=== PATIENT | female | born 1995 | race Caucasian/White ===

== ENCOUNTER → 2016-08-06 | Outpatient (REF) | payer SELFPAY | LOC: M LAB REF 09:35 | PROVIDERS: ATTEND Physician Assistant | DX: R20.9 Unspecified disturbances of skin sensation (principal) ==

== ENCOUNTER 2017-12-22 09:46 | Emergency (ER) | payer OTHER, SELFPAY | END 2017-12-22 10:27 | disposition home or self-care (01) | LOC: M ED 09:46 | DX: S51.802A Unspecified open wound of left forearm, initial encounter (principal); S50.812A Abrasion of left forearm, initial encounter; W50.4XXA Accidental scratch by another person, initial encounter; Y92.198 Other place in other specified residential institution as the place of occurrence of the external cause; Z88.0 Allergy status to penicillin | CPT/HCPCS: 99282 ==

== ENCOUNTER 2018-12-09 19:08 | Emergency (ER) | payer MEDICAID, OTHER, SELFPAY ==
[~2018-12-09] VITALS: Ht 170.2 cm; Wt 94.8 kg
[~2018-12-09 19:08] MED LIST: KEFL500C17 PO
[2018-12-09 20:17] LABS: HEMATOCRIT 39.6 % (36.0-47.0); HEMOGLOBIN 13.4 g/dl (12.0-15.5); MEAN CORPUSCULAR HEMOGLOBIN 32.3 pg (27.0-33.0); MEAN CORPUSCULAR HGB CONC 33.8 g/dl (32.0-36.5); MEAN CORPUSCULAR VOLUME 95.4 fl (80.0-96.0); PLATELET COUNT, AUTOMATED 322 10^3/uL (150-450); RED BLOOD COUNT 4.15 10^6/uL (4.00-5.40); WHITE BLOOD COUNT 9.8 10^3/uL (4.0-10.0)
[2018-12-09] MEDS ORDERED: diphenhydrAMINE 25 MG CAP PO ONE (20:30)
[2018-12-09] MEDS ORDERED: AUGMENTIN 875 MG TAB PO ONE (20:30)
[2018-12-09 20:36] LABS: HCG, SERUM QUALITATIVE NEGATIVE (NEGATIVE)
[2018-12-09 20:38] LABS: ALBUMIN 3.7 GM/DL (3.2-5.2); ALT/SGPT 14 U/L (12-78); BILIRUBIN,TOTAL 0.4 MG/DL (0.2-1.0); BLOOD UREA NITROGEN 11 MG/DL (7-18); CALCIUM LEVEL 9.5 MG/DL (8.5-10.1); CARBON DIOXIDE LEVEL 28 MEQ/L (21-32); CHLORIDE LEVEL 109 MEQ/L (98-107); GLOMERULAR FILTRATION RATE > 60.0 (>60); GLUCOSE, FASTING 86 MG/DL (70-100); POTASSIUM SERUM 3.8 MEQ/L (3.5-5.1); SODIUM LEVEL 142 MEQ/L (136-145); TOTAL PROTEIN 7.8 GM/DL (6.4-8.2)
[2018-12-09 21:09] VITALS: BP 146/90
[2018-12-09] MEDS ORDERED: AUGM875T28 PO (21:29)
== END 2018-12-09 21:36 | disposition home or self-care (01) ==
LOC: M ED 19:08
DX: S61.432A Puncture wound without foreign body of left hand, initial encounter (principal); T14.8XXA Other injury of unspecified body region, initial encounter; W55.09XA Other contact with cat, initial encounter; Y92.018 Other place in single-family (private) house as the place of occurrence of the external cause; Z88.0 Allergy status to penicillin

== ENCOUNTER → 2020-03-24 | Outpatient (REF) | payer OTHER ==
[~2020-03-24] MED LIST changes: +AUGM875T28 PO
[2020-03-24 17:20] LABS: HEMATOCRIT 39.5 % (36.0-47.0); MEAN CORPUSCULAR HEMOGLOBIN 31.3 pg (27.0-33.0); MEAN CORPUSCULAR HGB CONC 32.9 g/dl (32.0-36.5); MEAN CORPUSCULAR VOLUME 95.2 fl (80.0-96.0); PLATELET COUNT, AUTOMATED 349 10^3/uL (150-450); RED BLOOD COUNT 4.15 10^6/uL (4.00-5.40); WHITE BLOOD COUNT 12.7 10^3/uL (4.0-10.0)
[2020-03-24 18:40] LABS: HIV 1&2 SCREEN CENTAUR NEGATIVE (NEGATIVE)
[2020-03-24 18:52] LABS: CHLAMYDIA DNA AMPLIFICATION NEGATIVE (NEGATIVE); GC DNA AMPLIFICATION NEGATIVE (NEGATIVE)
== END ==
LOC: M PLALAB 15:33
PROVIDERS: ATTEND Advanced Practice Midwife
DX: Z34.82 Encounter for supervision of other normal pregnancy, second trimester (principal); Z3A.00 Weeks of gestation of pregnancy not specified

== ENCOUNTER → 2020-04-21 | Outpatient (CLI) | payer OTHER ==
--- NOTE | 2020-04-21 14:17 | REP ---
INDICATION: ANATOMY. COMPARISON: None. TECHNIQUE: Ultrasound of the gravid uterus. FINDINGS: There is a single intrauterine gestation in a transverse lie with the head to the maternal right. The placenta is anterior with grade 0 maturity. There is no placenta previa. The cervix measures 3.4 cm length. The umbilical cord inserts eccentrically on the placenta. The cord insertion is unremarkable. There is a three-vessel cord. heart rate is 133 beats per minute. Subjectively the amniotic fluid volume is normal. Gestational age by ultrasound today is 19 weeks 3 days with an HEMALATHA of 09/12/2020. The LMP is unknown. weight is 291 g, 0 lb-10 oz. This is the 47th percentile for 19 weeks 3 days. The following anatomic structures are identified and are unremarkable: Cranium, cavum septum pellucidum, falx, intracranial ventricles, choroid plexus, cerebellum, cisterna magna, diaphragm, stomach, right and left kidneys, bladder, spine, right and left upper extremities, right left lower extremities, 3 vessel cord. Suboptimally demonstrated because of position are the facial profile, upper lip, four-chamber heart and cardiac right left ventricular outflow tracts. A follow-up study dedicated to the structures might be considered. IMPRESSION: Consider follow-up study dedicated to those structures not identified today. Additionally, there is an eccentric implantation of the umbilical cord onto the placenta. With this particular configuration there is a higher risk of Vasa previa. Therefore, I recommend the patient return for transvaginal Doppler ultrasound of the lower uterine segment to evaluate for Vasa previa. <Electronically signed by Jack Patel > 04/21/20 [id number]
== END ==
LOC: M WHC 10:29
PROVIDERS: ATTEND Advanced Practice Midwife
DX: Z34.82 Encounter for supervision of other normal pregnancy, second trimester (principal)

== ENCOUNTER → 2020-05-30 | Outpatient (CLI) | payer OTHER ==
--- NOTE | 2020-05-31 08:39 | REP ---
INDICATION: F/U ANATOMY COMPARISON: 04/21/2020 TECHNIQUE: Transabdominal and transvaginal obstetrical ultrasound with color Doppler evaluation. FINDINGS: Examination demonstrates a single live intrauterine in cephalic presentation. motion is identified by technologist. Placenta is noted anterior and grade 1 without evidence for placenta previa or abruption. Amniotic fluid volume is normal. Cervix measures 3.5 cm in length and appears closed.. Gestational age by LMP 25 weeks 0 days with HEMALATHA 09/12/2020. Gestational age by current measurements 25 weeks 2 days with HEMALATHA 09/10/2020. FHR equals 147 beats per minute. Estimated weight 747 grams (38thpercentile). Anatomical assessment demonstrates normal structures including cranium, nose/lips, cardiac ventricular outflow tracts, stomach, kidneys, bladder and spine.. IMPRESSION: Single live intrauterine in cephalic presentation demonstrating appropriate interval growth. Continued limited evaluation of the facial profile, heart. <Electronically signed by Ortiz Tineo > 05/31/20 0815
== END ==
LOC: M WHC 13:14
PROVIDERS: ATTEND Advanced Practice Midwife
DX: Z34.82 Encounter for supervision of other normal pregnancy, second trimester (principal); Z3A.25 25 weeks gestation of pregnancy

== ENCOUNTER → 2020-07-03 | Outpatient (CLI) | payer OTHER ==
--- NOTE | 2020-07-03 14:36 | REP ---
INDICATION: F/U ANATOMY COMPARISON: 05/30/2020 TECHNIQUE: Transabdominal obstetrical ultrasound with color Doppler evaluation. FINDINGS: Examination demonstrates a single live intrauterine in cephalic presentation. motion is identified by technologist. Placenta is noted anterior and grade 1 without evidence for placenta previa or abruption. Amniotic fluid volume is normal. Cervix measures 3.0 cm in length and appears closed.. Gestational age by 1st ultrasound 29 weeks 6 days with HEMALATHA 09/13/2019. Gestational age by current measurements 30 weeks 1 day with HEMALATHA 09/10/2020. FHR equals 153 beats per minute. CAROLYN: 12.7 cm (9.0-23.3) Estimated weight 1501 grams (45thpercentile based on age by 1st ultrasound). Anatomical assessment demonstrates normal structures including cranium, stomach, kidneys/bladder, and spine. Continued limited evaluation of the facial features and four-chamber heart due to positioning. IMPRESSION: Single live intrauterine in cephalic presentation demonstrating appropriate estimated weight. Limited evaluation of the facial features and four-chamber heart due to positioning. <Electronically signed by Ortiz Tineo > 07/03/20 [id number]
== END ==
LOC: M WHC 13:15
PROVIDERS: ATTEND Advanced Practice Midwife
DX: Z34.93 Encounter for supervision of normal pregnancy, unspecified, third trimester (principal); Z3A.29 29 weeks gestation of pregnancy

== ENCOUNTER → 2020-07-03 | Outpatient (REF) | payer OTHER ==
[2020-07-03 19:07] LABS: HEMATOCRIT 34.6 % (36.0-47.0); HEMOGLOBIN 10.9 g/dl (12.0-15.5); MEAN CORPUSCULAR HEMOGLOBIN 31.2 pg (27.0-33.0); MEAN CORPUSCULAR HGB CONC 31.5 g/dl (32.0-36.5); MEAN CORPUSCULAR VOLUME 99.1 fl (80.0-96.0); PLATELET COUNT, AUTOMATED 297 10^3/uL (150-450); RED BLOOD COUNT 3.49 10^6/uL (4.00-5.40); WHITE BLOOD COUNT 12.7 10^3/uL (4.0-10.0)
== END ==
LOC: M PLALAB 14:18
PROVIDERS: ATTEND Advanced Practice Midwife
DX: Z34.82 Encounter for supervision of other normal pregnancy, second trimester (principal)

== ENCOUNTER → 2020-07-25 | Outpatient (CLI) | payer OTHER ==
--- NOTE | 2020-07-25 17:33 | REP ---
INDICATION: F/U ANATOMY. COMPARISON: 07/03/2020. TECHNIQUE: Real-time sonographic evaluation of the gravid uterus performed. FINDINGS: Estimated gestational age is33 weeks 0 days, EDC 09/12/2020. Today's measurements indicate appropriate growth. Presentation: Cephalic Placenta anterior, grade 2, without evidence of placenta previa. heart rate is recorded at 134 beats per minute. Amniotic fluid is subjectively normal. CAROLYN 16.1, normal range 8.3-24.5. Closed cervical length is measured at 3.9 cm. Biometry chart: BPD: 80 mm, 32 weeks 1 days, 39th percentile. HC: 300 mm, 33 weeks 2 days, 54th percentile AC: 299 mm, 33 weeks 6 days, 63rd percentile Femur length: 66 mm, 34 weeks 0 days, 65th percentile HC to AC ratio: 1.00, normal range 0.95-1.14. Estimated weight: 2241g, 62nd percentile. Facial structures are visualized and are grossly unremarkable. Four-chamber heart is again not well seen due to position. IMPRESSION: Viable single intrauterine gestation as above. <Electronically signed by Jack Howe > 07/25/20 [id number]
== END ==
LOC: M WHC 14:04
PROVIDERS: ATTEND Specialist
DX: Z34.83 Encounter for supervision of other normal pregnancy, third trimester (principal); Z3A.33 33 weeks gestation of pregnancy

== ENCOUNTER → 2020-07-25 | Outpatient (REF) | payer OTHER | LOC: M PLALAB 14:00 | PROVIDERS: ATTEND Specialist | DX: Z36.89 Encounter for other specified antenatal screening (principal) ==

== ENCOUNTER → 2020-08-04 | Outpatient (CLI) | payer OTHER | LOC: M LAB 08:58 | PROVIDERS: ATTEND Advanced Practice Midwife | DX: Z34.83 Encounter for supervision of other normal pregnancy, third trimester (principal); Z3A.33 33 weeks gestation of pregnancy ==

== ENCOUNTER → 2020-08-15 | Outpatient (CLI) | payer OTHER ==
--- NOTE | 2020-08-16 05:41 | REP ---
INDICATION: F/U ANATOMY COMPARISON: 07/25/2020 TECHNIQUE: Transabdominal obstetrical ultrasound with color Doppler evaluation. FINDINGS: Examination demonstrates a single live intrauterine in cephalic presentation. motion is identified by technologist. Placenta is noted anterior and grade 1 without evidence for placenta previa or abruption. Amniotic fluid volume is normal. Gestational age by 1st U/S 36 weeks 0 days with HEMALATHA 09/12/2020. Gestational age by current measurements 35 weeks 6 days with HEMALATHA 09/13/2020. FHR equals 129 beats per minute. Estimated weight 2904 grams (61stpercentile). CAROLYN: 11.6 cm Umbilical artery SD ratio: 2.69-2.99 (1.64-3.51) Current examination demonstrates normal appearance to the four-chamber heart and cardiac ventricular outflow tracts. IMPRESSION: Single live intrauterine in cephalic presentation demonstrating appropriate estimated weight and growth. In conjunction with prior examination anatomical assessment is complete and normal. <Electronically signed by Ortiz Tineo > 08/16/20 0537
== END ==
LOC: M WHC 12:10
PROVIDERS: ATTEND Advanced Practice Midwife
DX: Z36.9 Encounter for antenatal screening, unspecified (principal); Z3A.35 35 weeks gestation of pregnancy

== ENCOUNTER → 2020-08-18 | Outpatient (REF) | payer OTHER | LOC: M SFHCWAGY 16:59 | PROVIDERS: ATTEND Obstetrics & Gynecology | DX: Z34.83 Encounter for supervision of other normal pregnancy, third trimester (principal); Z3A.00 Weeks of gestation of pregnancy not specified ==

== ENCOUNTER 2020-09-16 00:57 | Inpatient (IN) | payer OTHER ==
[~2020-09-16] VITALS: Ht 170.2 cm; Wt 116.8 kg
[2020-09-16] VITALS (9 sets, daily range): BP systolic 125–145; BP diastolic 61–81
[2020-09-16] MEDS ORDERED: LACTATED RINGER'S 1000 ML IV STA ×3 (01:34→15:59)
[2020-09-16] MEDS ORDERED: METHYLERGONOVINE MALEATE 0.2 MG/ML VIAL (J2210) IM PRN (01:35)
[2020-09-16] MEDS ORDERED: LR 1,000 ML IV SCH ×2 (01:35→05:00)
[2020-09-16] MEDS ORDERED: BUTORPHANOL 2 MG/ML INJ (J0595) IV ONE (01:35)
[2020-09-16] MEDS ORDERED: LIDOCAINE 1% MDV 20ML VIAL INFIL PRN (01:35)
[2020-09-16] MEDS ORDERED: OXYTOCIN DRIP 30 UNITS in IV 1 EA IV PRN (01:35)
[2020-09-16] MEDS ORDERED: PROMETHAZINE INJ 25 MG/ML VIAL (J2550) IV ONE (01:35)
[2020-09-16] MEDS ORDERED: ONDANSETRON 4MG/2ML VIAL IV PRN ×3 (01:50→05:05)
--- NOTE | 2020-09-16 02:04 | HPEPDOC ---
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 BREAST: . ABDOMEN: Gravid and non-tender to touch. FETUS: Is vertex (VTX) by sterile vaginal examination (SVE), fetus is vertex (VTX) by Omar. EFW 8.5# HEART RATE: Regular rate and rhythm. LUNGS: Clear to auscultation (CTA). EXTREMITIES: No edema. No clonus. Deep tendon reflexes (DTRs) + 2. Laboratory Data 24H LABS Laboratory Tests 2 09/16/20 01:36: Serology Scanned Report Hepatitis B Testing Pertinent Laboratoy Data Blood Type: O+ RBC Antibody Screen: Negative HIV: Negative Hepatitis B: Negative Hepatitis C: Negative Rapid Plasma Reagin: Nonreactive Rubella: Immune Chlamydia/Gonorrhea: Negative Group B Streptococcus: Negative Glucose Tolerance Test: 147 (77/173/132/141) Anatomy Ultrasound Ultrasound Date: Apr 21, 2020 Placenta Location: Anterior (HEMALATHA 09/12/2020) Normal Anatomy: Yes Placenta Previa: No Estimated Weight (grams): 291 (47%) Other Ultrasounds 05/30/2020 EGA 25w2d, EFW 747gm, 38%, f/u anatomy 07/03/2020 EGA 30wd EFW 1501gm, 45%, CAROLYN 12.7, cephalic, f/u anatomy 07/25/2020 EGA 33w0d EFW 2241gm, 62%, cephalic, f/u anatomy 08/15/2020 EGA 35w6d, EFW 2904gm 61%, cephalic, normal f/u anatomy Steroid Therapy Steroid Therapy: No Vaginal Examination Dilation: 3 cm Effacement: 90% Station: -2 Cervical Consistency: Medium Cervical Position: Middle Presentation: Cephalic presentation Assessment Heart Rate (FHR): 135 Variability: Moderate Accelerations: Positive Decelerations: None (difficult to trace due to habitus and maternal movement) Tocometer Contractions: Yes Frequency: regular, every 2-5 min. Duration: less than 60 seconds Strength: palpated as mild Assessment/Plan Assessment Crissy is a 25-year-old (G)2 para (P)0-0-1-0 at 40+4 weeks by 19-week ultrasound. Presents to Labor and Delivery (L&D) with complaints of contractions and bloody show. Denies LOF. Reports fetus is active. Plan Admit and orient. Lacquerer and consent. Diet: clear liquids. Group B Streptococcus (GBS) negative Labs and intravenous (IV) per unit protocol. Counseled on Pitocin and induction of labor (IOL). Lactated Ringers (LR): Bolus 500 mL, then at 125 mL/hr. Plans to labor ad roger Anticipate normal spontaneous delivery (). C-S as appropriate. Charlee Acharya CNM September 16, 2020 01:44
[2020-09-16 02:54] LABS: HEMATOCRIT 37.7 % (36.0-47.0); HEMOGLOBIN 12.7 g/dl (12.0-15.5); MEAN CORPUSCULAR HGB CONC 33.7 g/dl (32.0-36.5); PLATELET COUNT, AUTOMATED 342 10^3/uL (150-450); RED BLOOD COUNT 3.97 10^6/uL (4.00-5.40)
--- NOTE | 2020-09-16 03:05 | IPNPDOC ---
Text Note Date of Service The patient was seen on 09/16/20. NOTE Progress SROM, thick meconium stained fluid Cat II tracing, episodes Cat III SVE /-2 Dr Parish requested to attend David HERNANDES, I+O David HERNANDES I+O Laboratory Tests 09/16/20 02:47 Charlee Acharya CNM September 16, 2020 03:05
[2020-09-16] MEDS ORDERED: BICITRA 30ML SOLN UDC PO ONE (03:10)
[2020-09-16] MEDS ORDERED: AZITHROMYCIN INJ 500 MG, VIAL MATE ADAPTER 1 EACH in NS 250 ML IV ONE (03:10)
[2020-09-16] MEDS ORDERED: ceFAZolin 2 GM/D5W 50 ML IV BAG (J0690 PER 500MG) As Ordered ONE (03:10)
[2020-09-16] MEDS ORDERED: BICITRA 30ML SOLN UDC As Ordered ONE (03:10)
[2020-09-16] MEDS ORDERED: ceFAZolin SOD 2 GM in IV 1 EA IV ONE (03:10)
[2020-09-16] MEDS ORDERED: AZITHROMYCIN INJ 500MG VIAL (J0456 PER 500MG) As Ordered ONE (03:17)
[2020-09-16] MEDS ORDERED: CLINDAMYCIN 900 MG in IV 1 EA IV ONE (03:30)
[2020-09-16] MEDS ORDERED: GENTAMICIN IV ONE (03:30)
[2020-09-16] MEDS ORDERED: D5W IV ONE (03:30)
--- NOTE | 2020-09-16 03:36 | IPNPDOC ---
Text Note Date of Service The patient was seen on 09/16/20. NOTE Decision for section I was called by SINDHU Acharya with request to come evaluate patient for NRFHT remote from delivery. In brief, Crissy is a 25yo with SIUP at 40w4d who presented a few hours prior in early labor at 3cm and upon SROM was noted to have thick meconium. She developed recurrent variable FHR decels and given how remote she is from delivery, I concur and have made the recommendation for section which patient is amenable to. She was counseled on r/b/a at length and she has signed consent form for PLTCS and blood transfusion if indicated. Will proceed to OR shortly. Anesthesia and nursing team aware of plan Given allergy to PCN is hives, she will receive 900mg IV clindamycin and 175mg IV gentamicin (1.5mg/kg) pre-operatively for prophylaxis Bicitra PO Dr. Clement has been notified and aware of plan MD GRETA Conte Fishbone, I+O David HERNANDES, I+O Laboratory Tests 09/16/20 02:47 Trena Parish MD September 16, 2020 03:36
[2020-09-16] MEDS ORDERED: NALBUPHINE HCL 10 MG/ML AMP (J2300) IV PRN (03:38)
[2020-09-16] MEDS ORDERED: METOCLOPRAMIDE INJ 10MG/2ML VIAL (J2765 PER 1) IV PRN (03:38)
[2020-09-16] MEDS ORDERED: NALOXONE INJ 0.4MG/1ML VIAL (J2310 PER 1MG) IV PRN ×2 (03:38)
[2020-09-16] MEDS ORDERED: diphenhydrAMINE 50MG/ML VIAL (J1200) IV PRN (03:38)
[2020-09-16] MEDS ORDERED: OXYTOCIN 30 UNITS IN 0.9% NaCl 500ML IV BAG (J2590) As Ordered ONE ×2 (04:04→05:23)
[2020-09-16] MEDS ORDERED: dexameTHASONE 4 MG/ML 1ML VIAL (J1100 PER 1MG) As Ordered ONE (04:04)
[2020-09-16] MEDS ORDERED: KETOROLAC 60MG 2ML VIAL As Ordered ONE (04:04)
[2020-09-16] MEDS ORDERED: ONDANSETRON 4MG/2ML VIAL As Ordered ONE (04:04)
[2020-09-16] MEDS ORDERED: MORPHINE PRES-FREE INJ 10 MG/10 ML VIAL (J2274) As Ordered ONE (04:04)
[2020-09-16] MEDS ORDERED: METOCLOPRAMIDE INJ 10MG/2ML VIAL (J2765 PER 1) As Ordered ONE (04:13)
[2020-09-16 04:24] LABS: CORD GAS ABE A -5.1; CORD GAS HCO3 A 22.1 MEQ/L; CORD GAS HCO3 V 21.6 MEQ/L; CORD GAS O2 SAT V 56.3 %; CORD GAS PCO2 A 48.6 mmHg; CORD GAS PCO2 V 41.7 mmHg; CORD GAS PH A 7.275 UNITS; CORD GAS PH V 7.333 UNITS; CORD GAS PO2 A 11.8 mmHg; CORD GAS PO2 V 23.5 mmHg; CORD GAS SBC A 18.5 MEQ/L; CORD GAS SBC V 20.1 MEQ/L; CORD GAS TCO2 A 23.6 MEQ/L; CORD GAS TCO2 V 22.9 MEQ/L
[2020-09-16] MEDS ORDERED: PHENYLephrine 500MCG 5ML (100MCG/ML) SYRINGE As Ordered ONE (04:44)
[2020-09-16] MEDS ORDERED: KETOROLAC 30 MG/ML 1ML VIAL IV PRN (05:00)
[2020-09-16] MEDS ORDERED: fentaNYL 100 MCG/2 ML INJECTION (J3010) IV PRN (05:00)
[2020-09-16] MEDS ORDERED: PERCOCET 5MG/325MG TAB PO PRN (05:00)
[2020-09-16] MEDS ORDERED: MEASLES,MUMPS,RUBELLA VACCINE INJ (MMR-II) (90707) SC SCH (05:05)
[2020-09-16] MEDS ORDERED: RHOGAM 300 MCG (1500 IU) INJ (J2790) IM SCH (05:05)
[2020-09-16] MEDS ORDERED: SIMETHICONE 80MG CHEW TAB PO PRN (05:05)
[2020-09-16] MEDS ORDERED: OXYTOCIN DRIP 30 UNITS in IV 1 EA IV SCH (05:05)
[2020-09-16] MEDS: DOCUSATE SODIUM 100MG CAPSULE PO SCH ×2 (08:17→22:05)
[2020-09-16] MEDS: PRENATAL VITAMINS CHEWABLE TABLET PO SCH (08:17)
--- NOTE | 2020-09-16 09:29 | RO ---
OPERATIVE NOTE DATE OF OPERATION: 09/16/2020 PREOPERATIVE DIAGNOSIS: 1. Term siu intrauterine in active labor with SROM having thick meconium. 2. Nonreassuring heart rate tracing remote from delivery. 3. Obesity. POSTOPERATIVE DIAGNOSIS: 1. Term siu intrauterine in active labor with SROM having thick meconium. 2. Nonreassuring heart rate tracing remote from delivery. 3. Obesity. OPERATION PERFORMED: Primary low transverse section. SURGEON: Trena Parish MD POWER REGULATOR: electrical tech. ANESTHESIA: spinal INDICATION FOR OPERATION: Crissy is a 25-year-old, G2, now P 1-0-1-1, who presented at 40 weeks, 4 days in early labor and was admitted. Within a couple hours, she had SROM with thick meconium and she developed a category 2 heart rate tracing with recurrent variable heart rate decelerations and given that she was remote from delivery in the setting of a nonreassuring heart rate tracing, she was counseled for a primary section. MATERIAL FORWARDED TO THE LAB FOR EXAMINATION: Cord gases, pH arterial 7.275, base excess negative 5.1, pH venous 7.333, base excess negative 4. DESCRIPTION OF FINDINGS: Male infant in cephalic presentation with a tight double nuchal cord, Apgars 9 and 9, weight 3140 gm or 6 lb, 15 oz. Normal appearing uterus. INFECTION CLASSIFICATION: 2. ESTIMATED BLOOD LOSS: 500 mL IV FLUIDS: 1400 mL of lactated Ringer's. URINE OUTPUT: 100 mL of clear yellow urine. DESCRIPTION OF PROCEDURE: After obtaining informed consent, the patient was taken to the operating room. She received spinal anesthesia and a De La Torre catheter and bilateral sequential compression devices were placed. She had a scalp electrode and just prior to proceeding with the surgery, heart tracing was between 70s and 80s. She was prepped and draped in normal sterile fashion in the dorsal supine position with a left lateral tilt. She received 900 mg of IV clindamycin and 175 mg of IV gentamicin because she had a history of hives with penicillin. A timeout was performed to confirm patient name, date of , procedure and indication. The team was in agreement. Spinal anesthesia was found to be adequate using an Allis clamp. A Pfannenstiel skin incision was made with the scalpel and carried through to the underlying layer of fascia. The fascia was incised in the midline and the incision was extended bluntly. Superior and inferior aspects of the fascial incision were grasped with Luiza clamps, elevated and the underlying rectus muscles were dissected off bluntly and sharply. The peritoneum was entered digitally. The rectus muscles were in the midline. The peritoneal incision was extended superiorly and inferiorly with good visualization of the bladder. The Mobius retractor was inserted and the vesicouterine peritoneum was identified, grasped with pickups and entered sharply with Metzenbaum scissors. The incision was extended laterally and the bladder flap was created digitally. The lower uterine segment was then scored in a transverse fashion with a scalpel. The uterus was entered bluntly and the incision was extended with traction. Thick meconium was noted. The 's head was easily elevated to the level of the incision. Fundal pressure was applied and the head was delivered atraumatically in the OT position. Anterior shoulder, posterior shoulder and corpus were delivered without difficulty. There was a double nuchal cord that was tight and it was reduced before delivery of the infant. Cord was clamped x2 and cut and the infant was immediately handed off to the awaiting nursing team. Cord gases were obtained. The placenta was then removed with uterine massage and traction on the umbilical cord and the uterus was left in situ and cleared of all clot and debris. The uterine incision was repaired with 0 Vicryl suture in a running locking fashion. A second layer of 0 Monocryl was used to close the hysterotomy incision in imbricating fashion. The uterine incision was inspected. Hemostasis was noted. The gutters were cleared of clots and then peritoneum was closed using a 3-0 Vicryl suture in a running fashion after the Mobius retractor was removed. The rectus muscles were reapproximated with two [id number] stitches using 3-0 Vicryl suture. The fascia was reapproximated with 0 Vicryl suture in a running fashion. The subcutaneous tissue was copiously irrigated. Jose Antonio's fascia was reapproximated using 3-0 Vicryl suture in a running fashion in two layers and then the skin edges were reapproximated using three inverted interrupted stitches using 3-0 Vicryl suture followed by a running subcuticular stitch using 4-0 Monocryl suture. The incision was cleaned using a wet lap, dried with a dry lap. Steri-Strips were applied perpendicular to the Pfannenstiel incision and Optifoam dressing was applied overlying. The vagina was cleared of all blood clot without active bleeding noted. The fundus was firm at U minus 1 cm. All counts were correct x2. The procedure was without complication. The patient tolerated the procedure well. She was taken to the recovery room on labor and delivery in stable condition. DONNA
[2020-09-16] MEDS: LR 1,000 ML IV SCH ×2 (09:35→18:40)
[2020-09-16] MEDS: KETOROLAC 30 MG/ML 1ML VIAL IV SCH ×3 (10:48→22:05)
[2020-09-17 02:00] VITALS: BP 130/72
[2020-09-17 06:00] VITALS: BP 122/81
[2020-09-17] MEDS: IBUPROFEN 800 MG TAB PO SCH ×3 (06:08→22:32)
[2020-09-17 06:52] LABS: HEMATOCRIT 29.8 % (36.0-47.0); MEAN CORPUSCULAR HEMOGLOBIN 32.1 pg (27.0-33.0); MEAN CORPUSCULAR HGB CONC 32.6 g/dl (32.0-36.5); MEAN CORPUSCULAR VOLUME 98.7 fl (80.0-96.0); PLATELET COUNT, AUTOMATED 250 10^3/uL (150-450); RED BLOOD COUNT 3.02 10^6/uL (4.00-5.40); WHITE BLOOD COUNT 16.1 10^3/uL (4.0-10.0)
[2020-09-17 06:55] LABS: HEMOGLOBIN 9.7 g/dl (12.0-15.5)
[2020-09-17] MEDS: PERCOCET 5MG/325MG TAB PO PRN ×3 (06:56→21:48)
[2020-09-17] MEDS: DOCUSATE SODIUM 100MG CAPSULE PO SCH ×2 (08:49→20:12)
[2020-09-17] MEDS: PRENATAL VITAMINS CHEWABLE TABLET PO SCH (08:49)
[2020-09-17 10:00] VITALS: BP 137/72
--- NOTE | 2020-09-17 12:19 | IPNPDOC ---
Progress Note Date of Service: September 17, 2020 Day#: 1 Progress Note POD 1 SUBJECT: Crissy is a 25yo [id number] s/p uncomplicated PLTCS at 40w4d when she presented in labor, had SROM with thick mec, and developed a NRFHT remote from delivery, doing well /post-op day # 1. She has been ambulating without lightheadedness/dizziness, voiding spontaneously without issue and tolerating regular diet. Breast feeding and supplementing with formula until milk comes in without issue. Reports lochia is like a normal period. No f/c/n/v/CP/SOB. OBJECTIVE: VITAL SIGNS: Within normal limits, afebrile. Alert and oriented times three. Abdomen: Fundus firm at U-2. Soft, NTTP. Pfannenstiel incision covered by dry/clean optifoam dressing. No surrounding erythema/induration. Extremities: no pain with palpation of calves Labs: pre-op H/H 12.7/37.7 post-op H/H 9.7/29.8 ASSESSMENT: Crissy is a 25yo [id number] s/p uncomplicated PLTCS at 40w4d when she presented in labor, had SROM with thick mec, and developed a NRFHT remote from delivery, doing well /post-op day # 1. Vitals within normal limits, afebrile, hemodynamically stable with no evidence of infection. PLAN: 1. Routine /post-op care 2. Motrin for pain with percocet prn. 3. Encourage breast feeding and ambulation and use of IS 4. Regular diet 5. Vitals q4hr 6. Likely discharge home tomorrow if meeting all milestones Trena Parish MD VS, I&O, 24H, David Vital Signs/I&O Vital Signs Date Time Temp Pulse Resp B/P (MAP) Pulse Ox O2 Delivery O2 Flow Rate FiO2 09/17/20 10:00 97.7 89 14 137/72 (93) 98 Room Air I&O- Last 24 Hours up to 6 AM 09/17/20 06:00 Intake Total 500 ml Output Total 1875 ml Balance -1375 ml Laboratory Data 24H LABS Laboratory Tests 2 09/17/20 06:12: Nucleated Red Blood Cells % (auto) 0.0 CBC/BMP Laboratory Tests 09/17/20 06:12 Trena Parish MD September 17, 2020 12:19
[2020-09-17 14:15] VITALS: BP 143/76
[2020-09-17 18:00] VITALS: BP 131/86
[2020-09-17 22:00] VITALS: BP 126/64
[2020-09-18 02:06] VITALS: BP 142/83
[2020-09-18 05:53] VITALS: BP 121/72
[2020-09-18] MEDS: IBUPROFEN 800 MG TAB PO SCH (06:30)
--- NOTE | 2020-09-18 07:01 | IPNPDOC ---
Progress Note Date of Service: September 18, 2020 Day#: 2 Progress Note POD 2 SUBJECT: Crissy is a 25yo [id number] s/p uncomplicated PLTCS at 40w4d when she presented in labor, had SROM with thick mec, and developed a NRFHT remote from delivery, doing well /post-op day # 2. She has been ambulating without lightheadedness/dizziness, voiding spontaneously without issue and tolerating regular diet. Breast feeding and supplementing with formula until milk comes in without issue. Reports lochia is like a normal period. No f/c/n/v/CP/SOB. OBJECTIVE: VITAL SIGNS: Within normal limits, afebrile. Alert and oriented times three. Abdomen: Fundus firm at U-2. Soft, NTTP. Pfannenstiel incision covered by dry/clean optifoam dressing. No surrounding erythema/induration. Abdominal bin felipe present which patient finds very helpful Extremities: no pain with palpation of calves Labs: pre-op H/H 12.7/37.7 post-op H/H 9.7/29.8 ASSESSMENT: Crissy is a 25yo [id number] s/p uncomplicated PLTCS at 40w4d when she presented in labor, had SROM with thick mec, and developed a NRFHT remote from delivery, doing well /post-op day # 2. Vitals within normal limits, afebrile, hemodynamically stable with no evidence of infection. PLAN: 1. discharge to home today 2. Rx Motrin for pain with percocet prn. Colace for bowel regimen 3. Encouraged breast feeding and ambulation and use of IS 4. Regular diet 5. Remove optifoam dressing and steri strips in 1 week, keep incision clean and dry 6. No heavy lifting and vaginal rest 6 weeks 7. Patient to follow up for incision check with me in 2 weeks 8. Return precautions discussed at length EPDS was given to patient during this admission and is elevated, but patient reports mood is overall very good. No current SI (she has hx of attempts going back to 2018). Discussed baby blues with patient and expectations, she is to call with any worsening of mood and this will be re-evaluated at her appt with me in 2 weeks. Trena Parish MD VS, I&O, 24H, Fishbone Vital Signs/I&O Vital Signs Date Time Temp Pulse Resp B/P (MAP) Pulse Ox O2 Delivery O2 Flow Rate FiO2 09/18/20 05:53 98.4 67 16 121/72 (88) Room Air 09/18/20 02:06 99 Trena Parish MD September 18, 2020 07:01
--- NOTE | 2020-09-18 07:05 | DS.PDOC ---
Discharge Summary General Date of Admission September 16, 2020 at 01:30 Date of Discharge September 18, 2020 Attending Physician: Trena Parish MD Discharge Summary PROCEDURES PERFORMED DURING STAY: primary low transverse section ADMITTING DIAGNOSES: 1. Active labor at term 2. Obesity DISCHARGE DIAGNOSES: 1. Active labor at term 2. Development of NRFHT remote from delivery, meconium, delivered via section 3. Obesity COMPLICATIONS/CHIEF COMPLAINT: LABOR. HISTORY OF PRESENT ILLNESS/HOSPITAL COURSE: Crissy is a 25yo [id number] s/p uncomplicated PLTCS at 40w4d when she presented in labor, had SROM with thick mec, and developed a NRFHT remote from delivery, doing well /post-op day # 2. She has had a benign /post-op course. At time of discharge, vitals are within normal limits, she is afebrile, hemodynamically stable with no evidence of infection. EPDS was given to patient during this admission and is elevated, but patient reports mood is overall very good. She adores her baby and is very happy with motherhood. No current SI (she has hx of attempts going back to 2018). Discussed baby blues with patient and expectations, she is to call with any worsening of mood and this will be re- evaluated at her appt in 2 weeks. DISCHARGE MEDICATIONS: Please see below. ALLERGIES: Please see below. PHYSICAL EXAMINATION ON DISCHARGE: VITAL SIGNS: Within normal limits, afebrile. Alert and oriented times three. Abdomen: Fundus firm at U-2. Soft, NTTP. Pfannenstiel incision covered by dry/clean optifoam dressing. No surrounding erythema/induration. Abdominal binder present which patient finds very helpful Extremities: no pain with palpation of calves LABORATORY DATA: Please see below. pre-op H/H 12.7/37.7 post-op H/H 9.7/29.8 DIET: regular DISPOSITION: home DISCHARGE PLAN/INSTRUCTIONS: 1. discharge to home today 2. Rx Motrin for pain with percocet prn. Colace for bowel regimen 3. Encouraged breast feeding and ambulation and use of IS 4. Regular diet 5. Remove optifoam dressing and steri strips in 1 week, keep incision clean and dry 6. No heavy lifting and vaginal rest 6 weeks 7. Patient to follow up for incision check with me in 2 weeks 8. Return precautions discussed at length DISCHARGE CONDITION: Stable TIME SPENT ON DISCHARGE: Greater than 30 minutes. Trena Parish MD Vital Signs/I&Os Vital Signs Date Time Temp Pulse Resp B/P (MAP) Pulse Ox O2 Delivery O2 Flow Rate FiO2 09/18/20 05:53 98.4 67 16 121/72 (88) Room Air 09/18/20 02:06 99 Discharge Medications Scheduled Amoxicillin/Potassium Clav (Augmentin 875-125 Tablet) 1 Each Tablet, 1 TAB PO BID Allergies Coded Allergies: Penicillins (Verified Allergy, Intermediate, RASH, 12/09/18) Trena Parish MD September 18, 2020 07:05
[2020-09-18] MEDS ORDERED: IBUP80TA PO (07:07)
[2020-09-18] MEDS ORDERED: PERCOCET PO (07:07)
[2020-09-18] MEDS ORDERED: DOK1CAP7 PO (07:07)
[2020-09-18] MEDS: PERCOCET 5MG/325MG TAB PO PRN (09:40)
[2020-09-18] MEDS: PRENATAL VITAMINS CHEWABLE TABLET PO SCH (09:40)
[2020-09-18] MEDS: DOCUSATE SODIUM 100MG CAPSULE PO SCH (09:40)
== END 2020-09-18 12:07 | disposition home or self-care (01) | DRG 540 ==
LOC: M LDO 00:57 → M LDI 01:30 → M OBS 06:19
PROVIDERS: ADMIT Advanced Practice Midwife; ATTEND Advanced Practice Midwife
PROC: 10D00Z1 Extraction of Products of Conception, Low, Open Approach (ICD-10-PCS; principal; 2020-09-16 03:42)
DX: O48.0 Post-term pregnancy (principal); Z3A.40 40 weeks gestation of pregnancy; Z37.0 Single live birth; Z87.891 Personal history of nicotine dependence; O77.0 Labor and delivery complicated by meconium in amniotic fluid; O76 Abnormality in fetal heart rate and rhythm complicating labor and delivery; O99.214 Obesity complicating childbirth; E66.9 Obesity, unspecified; O69.1XX0 Labor and delivery complicated by cord around neck, with compression, not applicable or unspecified